=== PATIENT | female | born 1995 | race Caucasian/White ===

== ENCOUNTER 2016-11-15 07:46 | Emergency (ER) | payer OTHER ==
--- NOTE | 2016-11-15 08:26 | UC ---
Eye Complaint HPI - HPI Summary HPI Summary: Pt presents with 10 days cough and congestion. pt states also with URI and body aches. Pt states has had a productive cough. Pt states early this week spoke with a provider through insurance co. Pt was started on Amox and flonase. States sx has markely improved. however, last evenig pt started with left eye erythema and white drainage. Slight itching. No vision changes, no photophbia. Pt does not wear corrective lenses Pt's medications reviewed at this visit. - History of Current Complaint Chief Complaint: UCEye Stated Complaint: LEFT EYE COMPLAINT Time Seen by Provider: 11/15/16 07:54 Hx Obtained From: Patient Hx Last Menstrual Period: 11/10/16 ?: No Onset/Duration: Sudden Onset Timing: Constant Severity Initially: Mild Severity Currently: Mild Location of Injury: Conjunctiva Alleviating Factor(s): Nothing Associated Signs And Symptoms: Positive: Drainage (Clear) - Allergies/Home Medications Allergies/Adverse Reactions: Allergies Allergy/AdvReac Type Severity Reaction Status Date / Time No Known Allergies Allergy Verified 11/15/16 07:50 Home Medications: Home Medications Acetaminophen [Acetaminophen Extra Stren] 1,000 mg PO ONCE PRN 11/15/16 [ History Confirmed 11/15/16] Amoxicillin PO (*) [Amoxicillin 500 MG CAP*] 500 mg PO TID 11/15/16 [History Confirmed 11/15/16] Fluticasone NASAL SPRAY 50MCG* [Flonase NASAL SPRAY 50MCG*] 2 spray BOTH NARES DAILY 11/15/16 [History Confirmed 11/15/16] PMH/Surg Hx/FS Hx/Imm Hx Previously Healthy: Yes - Surgical History Surgical History: Yes Surgery Procedure, Year, and Place: gum/ dental - Family History Known Family History: Positive: Hypertension - Social History Occupation: Employed Full-time - [employer] technician Lives: With Family Alcohol Use: None Substance Use Type: None Smoking Status (MU): Never Smoked Tobacco Review of Systems Constitutional: Fatigue Eyes: Drainage, Eye Redness ENT: Negative Respiratory: Negative Cardiovascular: Negative Gastrointestinal: Negative Genitourinary: Negative Motor: Negative Neurovascular: Negative Musculoskeletal: Negative Neurological: Negative Psychological: Negative All Other Systems Reviewed And Are Negative: Yes Physical Exam Triage Information Reviewed: Yes Appearance: Well-Appearing, No Pain Distress, Well-Nourished Vital Signs: Initial Vital Signs Temp 99 F 11/15/16 07:54 Pulse 72 11/15/16 07:54 Resp 16 11/15/16 07:54 BP 114/69 11/15/16 07:54 Pulse Ox 99 11/15/16 07:54 Vital Signs Reviewed: Yes Eyes: Positive: Conjunctiva Inflamed, Discharge, Other: - ANGELINA, EOM intact no photophobia + injected scant yellow drainage ENT: Positive: Hearing grossly normal, Pharynx normal, TMs normal, Other: - turbinates inflammed Dental Exam: Normal Neck exam: Normal Neck: Positive: Supple, Nontender, No Lymphadenopathy Respiratory Exam: Other - coarse, intermittent cough Respiratory: Positive: Chest non-tender, Lungs clear, Normal breath sounds, No respiratory distress, No accessory muscle use Cardiovascular Exam: Normal Cardiovascular: Positive: RRR, No Murmur, Pulses Normal Abdominal Exam: Normal Abdomen Description: Positive: Nontender, No Organomegaly, Soft Bowel Sounds: Positive: Present Musculoskeletal Exam: Normal Neurological Exam: Normal Neurological: Positive: Alert Psychological Exam: Normal Psychological: Positive: Normal Response To Family Skin Exam: Normal Eye Complaint Course/Dx - Course Course Of Treatment: Pt with cough, congestion x 10days improving with abx, flonase. pt now with injected, inflammed eye. Pt with normal visual acuitiy. Will start polytrim. return precautions discussed. pt comfortable and in agreement with plan - Differential Dx/Diagnosis Provider Diagnoses: conjunctivitis. uri Discharge - Discharge Plan Condition: Stable Disposition: HOME Prescriptions: Polymyx/Trimethoprim OPTH* [Polytrim OPHTH*] 1 drop LEFT EYE TID #1 btl Patient Education Materials: Conjunctivitis (ED) Forms: *Work Release Referrals: Keeley Alegre MD [Medical Doctor] - Additional Instructions: - apply eye drops 3 times a day to the affected eye - finish the amoxicillin as previously prescribed - thorough hand washing before and after applying eye drops is important - After you have been on antibiotics for 24 hours, change your pillow case - Contact your doctor or return with questions or concerns
[2016-11-15 08:32] VITALS: BP 114/69
== END 2016-11-15 08:30 | disposition home or self-care (01) ==
LOC: UCCORT 07:46
DX: H10.9 Unspecified conjunctivitis (principal); J06.9 Acute upper respiratory infection, unspecified
CPT/HCPCS: 99212; G0463

== ENCOUNTER 2018-02-07 18:31 | Emergency (ER) | payer OTHER ==
[2018-02-07 18:57] VITALS: BP 155/99
--- NOTE | 2018-02-07 19:07 | UC ---
UC General HPI - HPI Summary HPI Summary: pt c/o 10 day hx of frequent - urgent urination. no burning, abdominal pain or fever. no vaginal d/c, sores, odor or concern for std. tried any otc yeast tx with no relief. - History of Current Complaint Chief Complaint: UCGU Stated Complaint: URINARY Time Seen by Provider: 02/07/18 19:03 Hx Obtained From: Patient Hx Last Menstrual Period: 01/13/18 Pain Intensity: 0 Associated Signs & Symptoms: Negative: Abdominal Pain, Dysuria, Fever - Allergy/Home Medications Allergies/Adverse Reactions: Allergies Allergy/AdvReac Type Severity Reaction Status Date / Time No Known Allergies Allergy Verified 02/07/18 18:49 Home Medications: Home Medications Vitamin C/Biotin [Hair, Skin and Nails Gummies] 1 each PO DAILY 02/07/18 [ History Confirmed 02/07/18] PMH/Surg Hx/FS Hx/Imm Hx - Additional Past Medical History Additional PMH: UTI's - Surgical History Surgical History: Yes Surgery Procedure, Year, and Place: gum/ dental. sx repair of left clavicle--2017 - Family History Known Family History: Positive: Hypertension - Social History Occupation: Employed Full-time Alcohol Use: Occasionally Substance Use Type: None Smoking Status (MU): Never Smoked Tobacco - Immunization History Vaccination Up to Date: Yes Review of Systems All Other Systems Reviewed And Are Negative: Yes Constitutional: Positive: Negative Skin: Positive: Negative Eyes: Positive: Negative ENT: Positive: Negative Respiratory: Positive: Negative Cardiovascular: Positive: Negative Gastrointestinal: Positive: Negative Genitourinary: Positive: Frequency, Urgency. Negative: Dysuria, Hematuria, Vaginal/Penile Burning, Vaginal/Penile Itching, Vaginal/Penile Discharge, Vaginal/Penile Pain, Ulceration/Lesion Motor: Positive: Negative Neurovascular: Positive: Negative Musculoskeletal: Positive: Negative Neurological: Positive: Negative Psychological: Positive: Negative Is Patient Immunocompromised?: No Physical Exam Triage Information Reviewed: Yes Appearance: Well-Appearing Vital Signs: Initial Vital Signs Temp 97.9 F 02/07/18 18:50 Pulse 97 02/07/18 18:50 Resp 15 02/07/18 18:50 BP 155/99 02/07/18 18:50 Pulse Ox 100 02/07/18 18:50 Vital Signs Reviewed: Yes Eyes: Positive: Conjunctiva Clear ENT: Positive: Normal ENT inspection Neck: Positive: Supple, Nontender Respiratory Exam: Normal Respiratory: Positive: Lungs clear, Normal breath sounds Cardiovascular: Positive: RRR, No Murmur Abdomen Description: Positive: Nontender, No Organomegaly, Soft. Negative: CVA Tenderness (R), CVA Tenderness (L), Distended, Guarding Bowel Sounds: Positive: Present Musculoskeletal: Positive: ROM Intact Neurological: Positive: Alert Psychological: Positive: Age Appropriate Behavior Skin Exam: Normal Diagnostics - Laboratory Diagnostic Studies Completed/Ordered: u/a=blood and leukocytes with culture pending. Course/Dx - Course Course Of Treatment: Repeat II=120/87. may be visit related. pt will have it rechecked on f/u. - Diagnoses Provider Diagnosis: UTI (urinary tract infection) Discharge - Sign-Out/Discharge Documenting (check all that apply): Patient Departure All imaging exams completed and their final reports reviewed: No Studies - Discharge Plan Condition: Stable Disposition: HOME Prescriptions: Nitrofurantoin Monohyd/M-Cryst [Macrobid 100 mg Capsule] 100 mg PO BID 5 Days # 10 cap Patient Education Materials: Urinary Tract Infection in Women (DC) Referrals: MARYSE Figueroa [Primary Care Provider] - 7 Days - Billing Disposition and Condition Condition: STABLE Disposition: Home
== END 2018-02-07 19:26 | disposition home or self-care (01) ==
LOC: UCCORT 18:31
DX: N39.0 Urinary tract infection, site not specified (principal)
CPT/HCPCS: 81003; 87086; 99212; G0463